=== PATIENT | male | born 1960 | race African-American/Black ===

== ENCOUNTER 2020-11-19 17:49 | Inpatient (IN) | payer MEDICARE, OTHER ==
[~2020-11-19] VITALS: Ht 180.3 cm; Wt 129.7 kg
[2020-11-19] MEDS ORDERED: PIPERACILLIN/TAZ 3.375G PREMIX 50 ML IV ONE (18:30)
[2020-11-19 19:02] LABS: HEMATOCRIT. 29.9 % (42.0-52.0); HEMOGLOBIN. 9.6 g/dL (14.0-18.0); MEAN CORPUSCULAR HEMOGLOBIN 29.6 pg (28.0-32.0); MEAN PLATELET VOLUME 8.7 fl (7.4-10.4); PLATELET 461 x1000/uL (130-400); RED BLOOD CELL COUNT 3.25 mill/uL (4.7-6.1)
[2020-11-19 19:09] LABS: CHLORIDE 100 mEq/L (98-107)
[2020-11-19 19:12] LABS: INR 1.1; PROTHROMBIN TIME 11.4 sec (9.6-11.0)
[2020-11-19 19:27] LABS: PLATELET ESTIMATE INCREASED
[2020-11-19] MEDS ORDERED: ACETAMINOPHEN 325MG TABLET PO ONE (19:45)
[2020-11-19 22:35] VITALS: BP 143/74
[2020-11-19 22:40] VITALS: BP 143/74
[2020-11-19] MEDS ORDERED: DIPHENHYDRAMINE 50MG/ML VIAL IV PRN (23:00)
[2020-11-19] MEDS ORDERED: PIPERACILLIN/TAZOBACTAM 3.375 G in DEXT 5% WATER 100 ML IV SCH (23:00)
[2020-11-19] MEDS ORDERED: DEXTROSE 50% WATER 50ML SYRINGE IV PRN (23:00)
[2020-11-19] MEDS ORDERED: ZOLPIDEM TARTRATE 5MG TABLET PO PRN (23:00)
[2020-11-19] MEDS ORDERED: ONDANSETRON HCL 4MG/2ML INJ IV PRN (23:00)
[2020-11-19] MEDS ORDERED: ACETAMINOPHEN 325MG TABLET PO PRN ×2 (23:00)
[2020-11-20] MEDS ORDERED: VANCOMYCIN 1500MG in DEXTROSE 5% WATER 250ML IV NR (01:00)
[2020-11-20] MEDS: PIPERACILLIN/TAZOBACTAM 3.375 G in DEXT 5% WATER 100 ML IV SCH ×4 (06:11→23:25)
[2020-11-20] MEDS: SODIUM CHLORIDE 0.9% INJ 3ML FLUSH IVF SCH ×3 (06:12→21:18)
[2020-11-20] MEDS: BLOOD SUGAR DIAGNOSTIC STRIP TEST SCH ×4 (06:12→21:18)
[2020-11-20 08:00] VITALS: BP 148/72
[2020-11-20] MEDS: INSULIN LISPRO 100 UNITS/ML SUBCUT SCH ×4 (08:39→21:32)
[2020-11-20] MEDS ORDERED: GENTAMICIN SULF 40MG/ML 2ML VIAL ONE (09:57)
[2020-11-20] MEDS ORDERED: POLYMYXIN B SULFATE 500000 UNITS/VIAL ONE (09:58)
[2020-11-20] MEDS ORDERED: BUPIVACAINE HCL 0.5% (5MG/ML) 50ML ONE (09:58)
[2020-11-20] MEDS ORDERED: LIDOCAINE HCL 1% 20ML VIAL (Pyxis) INJ ONE (09:58)
[2020-11-20] MEDS ORDERED: MIDAZOLAM HCL 2 MG/2 ML VIAL ONE (10:50)
[2020-11-20] MEDS ORDERED: PIPERACILLIN/TAZOBACTAM 3.375 G in DEXT 5% WATER 100 ML IV SCH (14:00)
[2020-11-20] MEDS: SODIUM CHLORIDE 0.9% 1,000 ML IV SCH ×2 (14:17)
[2020-11-20 16:00] VITALS: BP 153/84
[2020-11-20 17:33] LABS: TOTAL IRON BINDING CAPACITY 168 ug/dL (250-450)
[2020-11-20 20:00] VITALS: BP 149/62
[2020-11-20] MEDS: AMLODIPINE 5MG TABLET PO SCH (21:17)
[2020-11-20] MEDS: FAMOTIDINE 20MG TABLET PO SCH (21:17)
[2020-11-20] MEDS: INSULIN GLARGINE UD 100 UNITS/ML SYR SUBCUT SCH (21:33)
[2020-11-20] MEDS ORDERED: VANCOMYCIN 1250MG in DEXTROSE 5% WATER 250ML IV SCH (22:00)
[2020-11-21] VITALS: BP 132/72
[2020-11-21 04:00] VITALS: BP 155/81
[2020-11-21] MEDS: BLOOD SUGAR DIAGNOSTIC STRIP TEST SCH ×4 (07:10→21:00)
[2020-11-21] MEDS: SODIUM CHLORIDE 0.9% INJ 3ML FLUSH IVF SCH ×3 (07:14→23:00)
[2020-11-21] MEDS: PIPERACILLIN/TAZOBACTAM 3.375 G in DEXT 5% WATER 100 ML IV SCH ×4 (07:14→23:45)
[2020-11-21 08:00] VITALS: BP 135/69
[2020-11-21] MEDS: AMLODIPINE 5MG TABLET PO SCH ×2 (08:28→22:49)
[2020-11-21] MEDS: SODIUM CHLORIDE 0.9% 1,000 ML IV SCH ×2 (08:28→17:15)
[2020-11-21] MEDS: INSULIN LISPRO 100 UNITS/ML SUBCUT SCH ×4 (08:37→22:59)
[2020-11-21 12:00] VITALS: BP 167/90
[2020-11-21] MEDS ORDERED: TETANUS AND DIPHTHERIA TOX/PF 0.5ML SYR (ADULT) IM ONE (15:30)
[2020-11-21 16:00] VITALS: BP 128/71
[2020-11-21] MEDS: IRON SUCROSE COMPLEX 100 MG/5 ML ML IV SCH (17:16)
[2020-11-21 20:00] VITALS: BP 150/87
[2020-11-21] MEDS ORDERED: VANCOMYCIN 1500MG in DEXTROSE 5% WATER 250ML IV SCH (21:00)
[2020-11-21] MEDS ORDERED: TETANUS, DIPHTHERIA, PERTUSSIS VAC/PF 0.5ML (>7YR OLD) IM ONE (21:00)
[2020-11-21] MEDS: FAMOTIDINE 20MG TABLET PO SCH (22:49)
[2020-11-21] MEDS: INSULIN GLARGINE UD 100 UNITS/ML SYR SUBCUT SCH (22:59)
[2020-11-22] VITALS: BP 152/70
[2020-11-22] MEDS: PIPERACILLIN/TAZOBACTAM 3.375 G in DEXT 5% WATER 100 ML IV SCH ×2 (01:06→12:54)
[2020-11-22 04:00] VITALS: BP 140/65
[2020-11-22 06:18] LABS: BASOPHILS % 0.4 % (0.0-2.0); EOSINOPHILS % 0.8 % (0.0-5.0); HEMATOCRIT. 26.5 % (42.0-52.0); HEMOGLOBIN. 8.7 g/dL (14.0-18.0); LYMPHOCYTES % 9.8 % (20.0-50.0); MEAN CORPUSCULAR HEMOGLOBIN 29.7 pg (28.0-32.0); MEAN CORPUSCULAR VOLUME 90.8 fL (80.0-94.0); MEAN PLATELET VOLUME 8.3 fl (7.4-10.4); MONOCYTES % 9.8 % (2.0-8.0); NEUTROPHILS % 79.2 % (40.0-76.0); PLATELET 485 x1000/uL (130-400); RED BLOOD CELL COUNT 2.92 mill/uL (4.7-6.1); RED CELL DISTRIBUTION WIDTH 13.8 % (11.6-14.6)
[2020-11-22] MEDS: SODIUM CHLORIDE 0.9% 1,000 ML IV SCH ×2 (06:23→21:07)
[2020-11-22] MEDS: SODIUM CHLORIDE 0.9% INJ 3ML FLUSH IVF SCH ×3 (06:23→21:09)
[2020-11-22] MEDS: BLOOD SUGAR DIAGNOSTIC STRIP TEST SCH ×4 (07:58→21:09)
[2020-11-22] MEDS: AMLODIPINE 5MG TABLET PO SCH ×2 (09:30→21:07)
[2020-11-22] MEDS: INSULIN LISPRO 100 UNITS/ML SUBCUT SCH ×4 (09:32→21:08)
[2020-11-22] MEDS: IRON SUCROSE COMPLEX 100 MG/5 ML ML IV SCH (18:31)
[2020-11-22] MEDS: CEFAZOLIN 2,000 MG in DEXT 5% WATER 100 ML IV SCH (18:31)
[2020-11-22 20:00] VITALS: BP 167/79
[2020-11-22] MEDS: FAMOTIDINE 20MG TABLET PO SCH (21:07)
[2020-11-22] MEDS: METRONIDAZOLE 500MG TABLET PO SCH (21:07)
[2020-11-22] MEDS: INSULIN GLARGINE UD 100 UNITS/ML SYR SUBCUT SCH (21:09)
[2020-11-23] VITALS: BP 185/92
[2020-11-23] MEDS: CLONIDINE 0.1MG TABLET PO PRN ×3 (00:14→20:44)
[2020-11-23] MEDS: CEFAZOLIN 2,000 MG in DEXT 5% WATER 100 ML IV SCH ×3 (00:16→17:42)
[2020-11-23 04:00] VITALS: BP 150/88
[2020-11-23] MEDS: INSULIN LISPRO 100 UNITS/ML SUBCUT SCH ×4 (07:50→20:57)
[2020-11-23 08:00] VITALS: BP 168/87
[2020-11-23] MEDS: BLOOD SUGAR DIAGNOSTIC STRIP TEST SCH ×4 (08:00→20:45)
[2020-11-23 08:31] LABS: HEMATOCRIT. 25.4 % (42.0-52.0); HEMOGLOBIN. 8.4 g/dL (14.0-18.0); MEAN CORPUSCULAR VOLUME 91.1 fL (80.0-94.0); MEAN PLATELET VOLUME 8.4 fl (7.4-10.4); PLATELET 477 x1000/uL (130-400); RED BLOOD CELL COUNT 2.79 mill/uL (4.7-6.1); RED CELL DISTRIBUTION WIDTH 13.9 % (11.6-14.6)
[2020-11-23] MEDS: SODIUM CHLORIDE 0.9% INJ 3ML FLUSH IVF SCH ×3 (08:50→21:16)
[2020-11-23] MEDS: AMLODIPINE 5MG TABLET PO SCH ×2 (08:54→20:44)
[2020-11-23] MEDS: METRONIDAZOLE 500MG TABLET PO SCH ×2 (08:54→20:41)
[2020-11-23 12:00] VITALS: BP 180/94
[2020-11-23 16:00] VITALS: BP 168/108
[2020-11-23] MEDS: IRON SUCROSE COMPLEX 100 MG/5 ML ML IV SCH (17:43)
[2020-11-23] MEDS: LOSARTAN POTASSIUM 100 MG TABLET PO SCH (18:01)
[2020-11-23 20:00] VITALS: BP_SYST 119; BP_SYST 194; BP_DIAS 77; BP_DIAS 96
[2020-11-23] MEDS: FAMOTIDINE 20MG TABLET PO SCH (20:45)
[2020-11-23] MEDS: INSULIN GLARGINE UD 100 UNITS/ML SYR SUBCUT SCH (21:19)
[2020-11-23 23:57] LABS: PLATELET ESTIMATE INCREASED
[2020-11-24] VITALS: BP 158/91
[2020-11-24] MEDS: CEFAZOLIN 2,000 MG in DEXT 5% WATER 100 ML IV SCH ×3 (02:25→16:55)
[2020-11-24 04:00] VITALS: BP 163/85
[2020-11-24] MEDS: SODIUM CHLORIDE 0.9% INJ 3ML FLUSH IVF SCH ×3 (05:51→21:18)
[2020-11-24] MEDS: BLOOD SUGAR DIAGNOSTIC STRIP TEST SCH ×4 (07:07→21:18)
[2020-11-24] MEDS: INSULIN LISPRO 100 UNITS/ML SUBCUT SCH ×4 (07:39→21:00)
[2020-11-24 08:00] VITALS: BP 195/99
[2020-11-24] MEDS: AMLODIPINE 5MG TABLET PO SCH ×2 (10:37→21:17)
[2020-11-24] MEDS: METRONIDAZOLE 500MG TABLET PO SCH ×2 (10:37→21:16)
[2020-11-24 12:00] VITALS: BP 197/99
[2020-11-24] MEDS: LOSARTAN POTASSIUM 100 MG TABLET PO SCH (14:25)
[2020-11-24 16:00] VITALS: BP 179/86
[2020-11-24 20:00] VITALS: BP 184/96
[2020-11-24] MEDS: FAMOTIDINE 20MG TABLET PO SCH (21:00)
[2020-11-24] MEDS: CLONIDINE 0.1MG TABLET PO PRN (21:17)
[2020-11-24] MEDS: INSULIN GLARGINE UD 100 UNITS/ML SYR SUBCUT SCH (21:18)
[2020-11-25] VITALS: BP 159/91
[2020-11-25] MEDS: CEFAZOLIN 2,000 MG in DEXT 5% WATER 100 ML IV SCH ×3 (00:03→16:22)
[2020-11-25 04:00] VITALS: BP 157/93
[2020-11-25] MEDS: SODIUM CHLORIDE 0.9% INJ 3ML FLUSH IVF SCH ×3 (06:07→21:26)
[2020-11-25 07:12] LABS: BASOPHILS % 0.4 % (0.0-2.0); EOSINOPHILS % 0.9 % (0.0-5.0); HEMATOCRIT. 26.5 % (42.0-52.0); HEMOGLOBIN. 8.9 g/dL (14.0-18.0); LYMPHOCYTES % 8.9 % (20.0-50.0); MEAN CORPUSCULAR HEMOGLOBIN 30.7 pg (28.0-32.0); MEAN CORPUSCULAR VOLUME 91.1 fL (80.0-94.0); MEAN PLATELET VOLUME 7.9 fl (7.4-10.4); MONOCYTES % 8.9 % (2.0-8.0); NEUTROPHILS % 80.9 % (40.0-76.0); PLATELET 515 x1000/uL (130-400); RED BLOOD CELL COUNT 2.91 mill/uL (4.7-6.1); RED CELL DISTRIBUTION WIDTH 14.5 % (11.6-14.6)
[2020-11-25] MEDS: BLOOD SUGAR DIAGNOSTIC STRIP TEST SCH ×4 (07:28→21:20)
[2020-11-25 07:35] LABS: CHLORIDE 107 mEq/L (98-107)
[2020-11-25] MEDS: INSULIN LISPRO 100 UNITS/ML SUBCUT SCH ×4 (07:50→21:00)
[2020-11-25 08:00] VITALS: BP 108/66
[2020-11-25] MEDS: METRONIDAZOLE 500MG TABLET PO SCH ×2 (10:14→21:20)
[2020-11-25] MEDS: HYDRALAZINE HCL 100MG TABLET PO SCH ×2 (10:16→21:22)
[2020-11-25] MEDS: LOSARTAN POTASSIUM 100 MG TABLET PO SCH (10:16)
[2020-11-25] MEDS: AMLODIPINE 5MG TABLET PO SCH ×2 (10:16→21:20)
[2020-11-25 12:00] VITALS: BP 178/90
[2020-11-25 16:00] VITALS: BP 186/93
[2020-11-25] MEDS: FERROUS SULFATE 325MG TABLET PO SCH (18:03)
[2020-11-25 20:00] VITALS: BP 162/85
[2020-11-25] MEDS: FAMOTIDINE 20MG TABLET PO SCH ×3 (21:00→21:29)
[2020-11-25] MEDS: INSULIN GLARGINE UD 100 UNITS/ML SYR SUBCUT SCH (21:26)
[2020-11-26] VITALS: BP 145/70
[2020-11-26] MEDS: CEFAZOLIN 2,000 MG in DEXT 5% WATER 100 ML IV SCH ×2 (01:45→09:43)
[2020-11-26 04:00] VITALS: BP 176/98
[2020-11-26] MEDS: CLONIDINE 0.1MG TABLET PO PRN (04:22)
[2020-11-26] MEDS: SODIUM CHLORIDE 0.9% INJ 3ML FLUSH IVF SCH (06:51)
[2020-11-26] MEDS: FERROUS SULFATE 325MG TABLET PO SCH ×2 (06:51→13:12)
[2020-11-26] MEDS: BLOOD SUGAR DIAGNOSTIC STRIP TEST SCH ×2 (06:57→13:18)
[2020-11-26] MEDS: INSULIN LISPRO 100 UNITS/ML SUBCUT SCH ×2 (06:57→12:50)
[2020-11-26 08:00] VITALS: BP 164/90
[2020-11-26] MEDS: METRONIDAZOLE 500MG TABLET PO SCH (09:42)
[2020-11-26] MEDS: HYDRALAZINE HCL 100MG TABLET PO SCH (09:42)
[2020-11-26] MEDS: AMLODIPINE 5MG TABLET PO SCH (09:42)
[2020-11-26] MEDS: LOSARTAN POTASSIUM 100 MG TABLET PO SCH (09:44)
[2020-11-26 12:00] VITALS: BP 174/91
== END 2020-11-26 14:45 | disposition left against medical advice (07) | DRG 853 ==
LOC: ER 17:49 → 6EST 19:39 → ENRESERV 21:48
PROVIDERS: ADMIT Internal Medicine; ATTEND Internal Medicine
PROC: 0J9Q0ZZ Drainage of Right Foot Subcutaneous Tissue and Fascia, Open Approach (ICD-10-PCS; principal; 2020-11-20)
PROC: 0JDQ0ZZ Extraction of Right Foot Subcutaneous Tissue and Fascia, Open Approach (ICD-10-PCS; 2020-11-20)
PROC: 02HV33Z Insertion of Infusion Device into Superior Vena Cava, Percutaneous Approach (ICD-10-PCS; 2020-11-24)
PROC: B548ZZA Ultrasonography of Superior Vena Cava, Guidance (ICD-10-PCS; 2020-11-24)
DX: A41.9 Sepsis, unspecified organism (principal); A48.0 Gas gangrene; E43 Unspecified severe protein-calorie malnutrition; E11.52 Type 2 diabetes mellitus with diabetic peripheral angiopathy with gangrene; L02.611 Cutaneous abscess of right foot; L03.115 Cellulitis of right lower limb; N17.9 Acute kidney failure, unspecified; M86.8X7 Other osteomyelitis, ankle and foot; D50.9 Iron deficiency anemia, unspecified; E11.40 Type 2 diabetes mellitus with diabetic neuropathy, unspecified; E11.621 Type 2 diabetes mellitus with foot ulcer; E78.00 Pure hypercholesterolemia, unspecified; E66.01 Morbid (severe) obesity due to excess calories; E11.69 Type 2 diabetes mellitus with other specified complication; E11.65 Type 2 diabetes mellitus with hyperglycemia; I50.9 Heart failure, unspecified; I11.0 Hypertensive heart disease with heart failure; L97.529 Non-pressure chronic ulcer of other part of left foot with unspecified severity; B95.61 Methicillin susceptible Staphylococcus aureus infection as the cause of diseases classified elsewhere; Z53.29 Procedure and treatment not carried out because of patient's decision for other reasons; G47.00 Insomnia, unspecified; Z79.899 Other long term (current) drug therapy; Z79.4 Long term (current) use of insulin; Z88.8 Allergy status to other drugs, medicaments and biological substances; Z68.39 Body mass index [BMI] 39.0-39.9, adult
CPT/HCPCS: 36415; 71045; 73630; 73721; 76937; 80048; 80053; 80202; 82962; 83036; 83540; 83550; 85025; 85651; 86140; 87070; 87077; 87186; 87426; 90714; 90715; 93005; 93923; 97022; 97116; 97161; 99285; C1725; C1893; J0690; J1580; J1815; J2250; J2405; J2543; J3370; J3490; J7030; J7060

== ENCOUNTER 2020-11-30 12:21 | Emergency (ER) | payer MEDICARE, OTHER ==
[~2020-11-30] VITALS: Ht 180.3 cm; Wt 127.0 kg
[2020-11-30 13:03] VITALS: BP 172/96
[2020-11-30] MEDS ORDERED: CEFAZOLIN 1000MG PREMIX 50 ML IV ONE (13:15)
[2020-11-30] MEDS ORDERED: VANCOMYCIN 1 G PREMIX 200 ML IV ONE (13:15)
== END 2020-11-30 13:16 | disposition left against medical advice (07) ==
LOC: ER 12:21
DX: T82.594A Other mechanical complication of infusion catheter, initial encounter (principal); E11.9 Type 2 diabetes mellitus without complications; I10 Essential (primary) hypertension; M86.9 Osteomyelitis, unspecified; Z98.890 Other specified postprocedural states; Y83.8 Other surgical procedures as the cause of abnormal reaction of the patient, or of later complication, without mention of misadventure at the time of the procedure; Y92.018 Other place in single-family (private) house as the place of occurrence of the external cause
CPT/HCPCS: 99281

== ENCOUNTER 2020-12-03 07:31 | Emergency (ER) | payer MEDICARE, OTHER ==
[~2020-12-03] VITALS: Ht 180.3 cm; Wt 122.0 kg
[2020-12-03 08:17] VITALS: BP 171/94
[2020-12-03 08:48] LABS: BASOPHILS % 0.6 % (0.0-2.0); EOSINOPHILS % 1.4 % (0.0-5.0); HEMATOCRIT. 30.8 % (42.0-52.0); HEMOGLOBIN. 9.8 g/dL (14.0-18.0); LYMPHOCYTES % 9.7 % (20.0-50.0); MEAN CORPUSCULAR VOLUME 91.3 fL (80.0-94.0); MEAN PLATELET VOLUME 8.7 fl (7.4-10.4); MONOCYTES % 9.1 % (2.0-8.0); NEUTROPHILS % 79.2 % (40.0-76.0); PLATELET 343 x1000/uL (130-400); RED BLOOD CELL COUNT 3.37 mill/uL (4.7-6.1); RED CELL DISTRIBUTION WIDTH 15.1 % (11.6-14.6)
[2020-12-03 08:50] LABS: CHLORIDE 104 mEq/L (98-107)
[2020-12-03] MEDS ORDERED: LIDOCAINE HCL 1% 20ML VIAL (Pyxis) INJ ONE (08:51)
[2020-12-03 08:53] LABS: INR 1.1; PROTHROMBIN TIME 11.5 sec (9.6-11.0)
== END 2020-12-03 10:51 | disposition left against medical advice (07) ==
LOC: ER 07:31
DX: T82.868A Thrombosis due to vascular prosthetic devices, implants and grafts, initial encounter (principal); E11.9 Type 2 diabetes mellitus without complications; I10 Essential (primary) hypertension; Z98.890 Other specified postprocedural states
CPT/HCPCS: 36415; 36573; 36584; 80053; 85025; 85610; 99285; C1725; J3490; 99281